=== PATIENT | male | born 1955 | race Caucasian/White ===

== ENCOUNTER → 2016-07-28 | Outpatient (CLI) | payer OTHER ==
[~2016-07-28] MED LIST: ALDACTONE100 MG PO; ALDACTONE25 M1 PO; AMBIEN10 M1 PO; AMBIEN5 MG PO; ATARAX,VISTARIL50 MG PO; BACTRIM DS 8001 TA1 PO; BACTROBAN OINT0.9 GM T; BACTROBAN2% TP; BENADRYL25 MG PO; CEPHULAC10 GM/15 M PO; Carafate1 GM/10 ML PO; DIABETA5 MG PO; FISH OIL 1,2001 EAC1 PO; FLEXERIL10 MG PO; HYDROCODONE BIT1 T52 PO; KEFLEX500 MG PO; LACTULOSE20 GM/30 M PO; LANTUS100 U/ML SC; LASIX20 MG PO; MEDROL DOSEPAK4 MG PO; METANX CAPSULE1 EACH PO; MOTRIN800 MG PO; MULTI-DAY VITA1 EACH PO; MULTIVITAMIN1 CTB PO; NAPROSYN500 MG PO; NORCO 325 MG-7.1 TAB PO; NOVOLOG100 U/ML SC; OMEPRAZOLE20 M2 PO; POTASSIUM20 MEQ PO; PRILOSEC20 MG PO; ROXICODONE15 MG PO; SPIRIVA18 MCG PO; SPRIVA; TRAZADONE HYDR100 MG PO; TRAZODONE100 MG PO; VENTOLIN H0.09 MG/AC INH; VICODIN ES 7501 TA1 PO; VISTARIL25 M1 PO; ZOLOFT50 MG PO; [UNRECOGNIZED DRUG - OTHER]
[2016-07-28 12:05] LABS: BUN 9 mg/dl (7-24); CARBON DIOXIDE 29 mmol/L (21-32); CHLORIDE 101 mmol/L (98-107); CHOLESTEROL 141 mg/dL (<200); EST GLOM FILT AFRICAN AMERICAN > 60 ml/min; GLUCOSE 174 mg/dL (65-99); HDL CHOLESTEROL 32 mg/dl (40-60); LDL CHOLESTEROL 76 mg/dL (9-159); POTASSIUM 3.7 mmol/L (3.5-5.1); SODIUM 136 mmol/L (136-145); TRIGLYCERIDES 167 mg/dl (<150); VLDL CHOLESTEROL 33 mg/dL (6-40)
== END | disposition home or self-care (01) ==
LOC: LAB 10:47
PROVIDERS: Family Medicine
DX: J44.9 Chronic obstructive pulmonary disease, unspecified (principal); E11.9 Type 2 diabetes mellitus without complications; I10 Essential (primary) hypertension; T30.0 Burn of unspecified body region, unspecified degree

== ENCOUNTER → 2016-12-15 | Outpatient (CLI) | payer OTHER ==
[2016-12-15 12:20] LABS: BASO % 0.7 % (0.0-1.0); EOS # 0.1 10*3/uL (0.0-0.4); EOS % 1.4 % (1.0-4.0); HEMATOCRIT 44.9 % (42.0-52.0); HEMOGLOBIN 14.5 g/dl (14.0-18.0); LYMPH # 1.2 10*3/uL (1.3-4.4); LYMPH % 27.8 % (27.0-41.0); MEAN CELL VOLUME 90.3 fl (80.0-94.0); MEAN CORPUSCULAR HGB 29.2 pg (27.0-31.0); MEAN CORPUSCULAR HGB CONC 32.3 g/dl (33.0-37.0); MONO # 0.4 10*3/uL (0.1-1.0); MONO % 9.9 % (3.0-9.0); NEUT # 2.6 10*3/uL (2.3-7.9); PLATELET COUNT AUTOMATED 108 10*3/uL (130-400); RED BLOOD COUNT 4.97 10*6/uL (4.50-5.90); WHITE BLOOD COUNT 4.4 10*3/uL (4.8-10.8)
[2016-12-15 12:39] LABS: ALBUMIN 1.9 gm/dl (3.1-4.5); ALKALINE PHOSPHATASE 111 U/L (45-117); BUN 7 mg/dl (7-24); CHLORIDE 103 mmol/L (98-107); CREATININE 1.21 mg/dL (0.70-1.30); SGOT/AST 67 IU/L (3-35); SGPT/ALT 43 U/L (12-78); SODIUM 135 mmol/L (136-145); TOTAL PROTEIN 5.8 gm/dL (6.4-8.2)
== END | disposition home or self-care (01) ==
LOC: LAB 11:33
PROVIDERS: Family Medicine
DX: T30.0 Burn of unspecified body region, unspecified degree (principal); R53.83 Other fatigue; E11.9 Type 2 diabetes mellitus without complications; M19.011 Primary osteoarthritis, right shoulder; X58.XXXA Exposure to other specified factors, initial encounter; Y93.89 Activity, other specified; Y92.89 Other specified places as the place of occurrence of the external cause; Y99.8 Other external cause status

== ENCOUNTER 2017-03-30 14:01 | Inpatient (IN) | payer OTHER ==
[~2017-03-30] VITALS: Ht 182.8 cm; Wt 94.1 kg
[2017-03-30] VITALS (8 sets, daily range): BP systolic 118–158; BP diastolic 70–98
[~2017-03-30 14:01] MED LIST changes: -CIPROFLOXACIN500 M4 PO; -METOPROLOL SUCC25 M2 PO; -METRONIDAZOLE500 M1 PO; -MOBIC15 MG PO; -ROPINIROLE HYDRO1 MG PO; -VITAMIN D5000 UNI1 PO
--- NOTE | 2017-03-30 15:14 | NUR ---
MULTIPLE ATTEMPTS MADE TO START AND IV WITH NO SUCCESS AT THIS TIME THE PATIENT REFUSES ANY FUTHER ATTEMPTS. MEL CALRSON RN [employer] SOAPING MACHINE OPERATOR MADE AWARE.
[2017-03-30 15:25] LABS: BASO % 0.4 % (0.0-1.0); EOS # 0.1 10*3/uL (0.0-0.4); HEMATOCRIT 47.4 % (42.0-52.0); LYMPH # 1.1 10*3/uL (1.3-4.4); LYMPH % 20.8 % (27.0-41.0); MEAN CELL VOLUME 92.2 fl (80.0-94.0); MEAN CORPUSCULAR HGB 31.1 pg (27.0-31.0); MEAN CORPUSCULAR HGB CONC 33.8 g/dl (33.0-37.0); MEAN PLATELET VOLUME 10.9 fl (9.6-12.3); MONO # 0.5 10*3/uL (0.1-1.0); MONO % 8.6 % (3.0-9.0); NEUT # 3.6 10*3/uL (2.3-7.9); PLATELET COUNT AUTOMATED 141 10*3/uL (130-400); RED BLOOD COUNT 5.14 10*6/uL (4.50-5.90); RED CELL DISTRI WIDTH 16.9 % (0-14.5); WHITE BLOOD COUNT 5.3 10*3/uL (4.8-10.8)
[2017-03-30 15:34] LABS: ACT PARTIAL THROMBO TIME 25.5 SECONDS (20.8-31.5); INTERNATIONAL NORM RATIO 1.2 (2.0-3.5)
[2017-03-30 15:45] LABS: ALKALINE PHOSPHATASE 118 U/L (45-117); BUN 9 mg/dl (7-24); CHLORIDE 103 mmol/L (98-107); LIPASE 63 U/L (73-393); POTASSIUM 4.1 mmol/L (3.5-5.1); SGOT/AST 47 IU/L (3-35); SGPT/ALT 29 U/L (12-78); SODIUM 135 mmol/L (136-145); TOTAL PROTEIN 5.7 gm/dL (6.4-8.2)
--- NOTE | 2017-03-30 17:19 | NUR ---
SPOKE WITH DR. CASTELLON REGARDING PATIENT CONSULT. THE DOCTOR WAS UPDATED ON THE PATIENT AND WAS TOLD THE PLAN OF CARE. DR. CASTELLON STATED HE WOULD BE IN TOMORROW TO SEE THE PATIENT.
[2017-03-30] MEDS ORDERED: ROPINIROLE HYDRO1 MG PO (17:23)
[2017-03-30] MEDS ORDERED: MOBIC15 MG PO (17:23)
--- NOTE | 2017-03-30 18:00 | NUR ---
A 61, admitted to , under the services of MASSIMO Mak DO with a diagnosis of ETOH ABUSE AND AFIB RVR. Chief complaint is RAPID HEART RATE. Patient arrived via OTHER from ER. Monitor applied. Initial assessment completed. Vital signs taken and recorded. MASSIMO MAK DO notified of admission to the unit. Orders received. See assessment for past medical history, medications and allergies. Patient and/or family oriented to unit. [facility] visitation policy reviewed. Clothing/patient valuable form completed. LESLIE ESPOSITO
[2017-03-30 18:20] LABS: BILIRUBIN NEGATIVE (NEGATIVE); BLOOD TRACE-INTACT (NEGATIVE); CLARITY CLEAR (CLEAR); COLOR YELLOW (YELLOW); GLUCOSE NEGATIVE (NEGATIVE); KETONE NEGATIVE (NEGATIVE); LEUKO ESTERASE NEGATIVE (NEGATIVE); NITRITE NEGATIVE (NEGATIVE); PH 5.5 (5.0-9.0); UROBILINOGEN 0.2 E.U./dl (0.2-1.0)
[2017-03-30 18:27] LABS: RBC 0-2 rbc/hpf (0-2)
[2017-03-30 18:29] LABS: URINE AMPHETAMINES < 1000 (1000ng/ml); URINE BARBITURATES < 200 (200ng/ml); URINE BENZODIAZEPINES > 200 (200ng/ml); URINE CANNABINOIDS (THC) > 50 (50ng/ml); URINE COCAINE < 300 (300ng/ml); URINE METHADONE < 300 (300ng/ml); URINE OPIATES > 300 (300ng/ml)
[2017-03-30 18:32] LABS: URINE PHENCYCLIDINE < 25 (25ng/ml)
--- NOTE | 2017-03-30 18:35 | NUR ---
PATIENT DRINKING REDICAT NOW. NO COMPLAINTS AT THIS TIME.
--- NOTE | 2017-03-30 20:43 | NUR ---
DR. AVILES NOTIFIED THAT LAB WAS UNABLE TO DRAW TROPONINS D/T PATIENT BEING A VERY HARD STICK AND THEY WERE UNSUCCESSFUL IN EARLIER ATTEMPTS.
--- NOTE | 2017-03-31 00:43 | NUR ---
DR SMITH NOTIFIED OF CT RESULTS. OK TO RESUME DIET NOW.
[2017-03-31 07:11] LABS: BASO % 0.6 % (0.0-1.0); EOS # 0.1 10*3/uL (0.0-0.4); EOS % 1.4 % (1.0-4.0); HEMATOCRIT 44.7 % (42.0-52.0); HEMOGLOBIN 15.3 g/dl (14.0-18.0); LYMPH # 0.8 10*3/uL (1.3-4.4); LYMPH % 20.9 % (27.0-41.0); MEAN CELL VOLUME 92.4 fl (80.0-94.0); MEAN CORPUSCULAR HGB 31.6 pg (27.0-31.0); MEAN CORPUSCULAR HGB CONC 34.2 g/dl (33.0-37.0); MEAN PLATELET VOLUME 11.7 fl (9.6-12.3); MONO # 0.5 10*3/uL (0.1-1.0); MONO % 13.1 % (3.0-9.0); NEUT # 2.3 10*3/uL (2.3-7.9); NEUT % 63.7 % (47.0-73.0); PLATELET COUNT AUTOMATED 125 10*3/uL (130-400); RED BLOOD COUNT 4.84 10*6/uL (4.50-5.90); RED CELL DISTRI WIDTH 16.8 % (0-14.5); WHITE BLOOD COUNT 3.6 10*3/uL (4.8-10.8)
[2017-03-31 07:42] LABS: ALBUMIN 1.7 gm/dl (3.1-4.5); ALKALINE PHOSPHATASE 97 U/L (45-117); BUN 8 mg/dl (7-24); CHLORIDE 107 mmol/L (98-107); CHOLESTEROL 131 mg/dL (<200); CREATININE 0.86 mg/dL (0.70-1.30); FREE T4 0.88 ng/dl (0.76-1.46); HDL CHOLESTEROL 30 mg/dl (40-60); LDL CHOLESTEROL 74 mg/dL (9-159); PHOSPHOROUS 2.9 mg/dL (2.5-4.9); POTASSIUM 4.6 mmol/L (3.5-5.1); SGOT/AST 48 IU/L (3-35); SGPT/ALT 25 U/L (12-78); SODIUM 135 mmol/L (136-145); TOTAL PROTEIN 5.1 gm/dL (6.4-8.2); TRIGLYCERIDES 137 mg/dl (<150); VLDL CHOLESTEROL 27 mg/dL (6-40)
[2017-03-31 07:57] LABS: VITAMIN D, 25-HYDROXY 9.5 ng/mL (30-100)
[2017-03-31 08:00] VITALS: BP 112/77
--- NOTE | 2017-03-31 08:03 | NUR ---
Area Field Person in to talk to patient. Patient states lives at HOME with A ROOM MATE. There are 17 steps in the home. Physician: DR CLEVELAND Pharmacy: Home health services: NONE Patient's level of ADLs: INDEPENDENT Patient has working utilities: YES DME: [facility] Follow-up physician's appointment after d/c: WILL BE MADE PRIOR TO DC Does patient want to access PORTAL?: Discharge plan HOME. RIGO TERESA
--- NOTE | 2017-03-31 08:22 | NUR ---
NOTIFIED DR LAWTON OF NEW CONSULT FOR DIARRHEA. REVIEWED LABS AND TEST RESULTS. DR LAWTON STATED "HE IS OK" CALL BACK WITH STOOL RESULTS WHEN WE ARE ABLE TO OBTAIN THEM.
--- NOTE | 2017-03-31 08:25 | NUR ---
PT OFF FLOOR VIA TRANSPORT FOR BLE US.
--- NOTE | 2017-03-31 10:56 | NUR ---
MULTIPLE ATTEMPTS TO DRAW LABS UNSUCCESSFUL.ENCOURAGED PT TO HAVE PICC PLACED BUT HE REFUSED.
[2017-03-31 12:00] VITALS: BP 153/94
--- NOTE | 2017-03-31 12:04 | NUR ---
ATIVAN 1 MG GIVEN FOR C/O ANXIETY. PT BEGINNING TO EXPERIENCE WITHDRAWAL FROM ALCOHOL.PT TACHY UP TO 140'S. PT ALSO STATES HE'S FEELING BAD AND "WANTS A DRINK. PT DOES DRINK WHISKEY DAILY IN LARGE QUANTITIES.
--- NOTE | 2017-03-31 14:10 | NUR ---
Attempted PT evaluation and pt declined stating that he needed to eat breakfast, made second attempt approximately 1 hour later and pt had just received breakfast. Will attempt at later time. [place]ia Orozco, PT
[2017-03-31 16:00] VITALS: BP 126/81
[2017-03-31 20:00] VITALS: BP 138/96
[2017-04-01] VITALS: BP 148/68
[2017-04-01 08:00] VITALS: BP 109/81
--- NOTE | 2017-04-01 11:11 | NUR ---
OT DAILY NOTE TRETAMENT ATTEMPTED THIS DATE. PT IN BED AND STATED THAT HE HAS BEEN UP EVERY 10 MINUTES TO USE THE BATHROOM AND JUST WANTS TO REST. WILL ATTEMPT AT ANOTHER DATE/TIME. EDUARDA MEDINA/Florecita
[2017-04-01 12:00] VITALS: BP 103/66
--- NOTE | 2017-04-01 14:03 | NUR ---
PHYSICAL THERAPY PT eval completed on level 5 today. full eval to follow, Patient lacks motivation to participate in eval today. Upon assessment he is found to hacve decreased strenght, balacne and endurance and safety and would benefit from PT services to improve functional mobility. patient is a moderate complexity [id number] per chart review, tests and evaluation. Recommend home with home PT on d/c. Thank you for this referral. Sammie Pan
[2017-04-01] MEDS ORDERED: VITAMIN D5000 UNI1 PO (16:33)
[2017-04-01] MEDS ORDERED: METRONIDAZOLE500 M1 PO (16:33)
[2017-04-01] MEDS ORDERED: CIPROFLOXACIN500 M4 PO (16:33)
[2017-04-01] MEDS ORDERED: METOPROLOL SUCC25 M2 PO (16:33)
--- NOTE | 2017-04-01 17:42 | NUR ---
Discharge instructions reviewed with patient/family. Patient receptive and verbalizes understanding. Follow-up care arranged. Written instructions given to patient/family.F/U EDUCATION PROVIDED WITH REFERRAL TO DR CASTELLON FOR F/U. MARCIA TANG
--- NOTE | 2017-04-04 14:29 | NUR ---
OCCUPATIONAL THERAPY CO-SIGN I approve of the Occupational Therapy notes written above. MACIE HERNANDEZ
== END 2017-04-01 17:08 | disposition home or self-care (01) | DRG 871 ==
LOC: ED 14:01 → EDHOLD 16:09 → 5E 16:09
PROVIDERS: Internal Medicine; Physician Assistant; ADMIT Emergency Medicine
DX: A41.9 Sepsis, unspecified organism (principal); E43 Unspecified severe protein-calorie malnutrition; D69.6 Thrombocytopenia, unspecified; E11.51 Type 2 diabetes mellitus with diabetic peripheral angiopathy without gangrene; E83.42 Hypomagnesemia; I27.20 Pulmonary hypertension, unspecified; E11.65 Type 2 diabetes mellitus with hyperglycemia; E87.1 Hypo-osmolality and hyponatremia; I48.92 Unspecified atrial flutter; F10.20 Alcohol dependence, uncomplicated; Y90.9 Presence of alcohol in blood, level not specified; I48.91 Unspecified atrial fibrillation; B18.2 Chronic viral hepatitis C; K21.9 Gastro-esophageal reflux disease without esophagitis; F32.9 Major depressive disorder, single episode, unspecified; D72.810 Lymphocytopenia; I10 Essential (primary) hypertension; F17.210 Nicotine dependence, cigarettes, uncomplicated; J44.9 Chronic obstructive pulmonary disease, unspecified; F41.9 Anxiety disorder, unspecified; G47.00 Insomnia, unspecified; K52.9 Noninfective gastroenteritis and colitis, unspecified; Z68.28 Body mass index [BMI] 28.0-28.9, adult; Z82.49 Family history of ischemic heart disease and other diseases of the circulatory system; Z83.3 Family history of diabetes mellitus; Z82.5 Family history of asthma and other chronic lower respiratory diseases; Z79.899 Other long term (current) drug therapy; Z90.49 Acquired absence of other specified parts of digestive tract

== ENCOUNTER → 2017-03-30 | Outpatient (CLI) | payer OTHER ==
[~2017-03-30] MED LIST changes: +CIPROFLOXACIN500 M4 PO; +METOPROLOL SUCC25 M2 PO; +METRONIDAZOLE500 M1 PO; +MOBIC15 MG PO; +ROPINIROLE HYDRO1 MG PO; +VITAMIN D5000 UNI1 PO
== END | disposition home or self-care (01) ==
LOC: LAB 12:46
DX: K52.9 Noninfective gastroenteritis and colitis, unspecified (principal)

== ENCOUNTER → 2017-03-31 | Outpatient (CLI) | payer OTHER ==
[~2017-03-31] MED LIST changes: +CIPROFLOXACIN500 M4 PO; +METOPROLOL SUCC25 M2 PO; +METRONIDAZOLE500 M1 PO; +MOBIC15 MG PO; +ROPINIROLE HYDRO1 MG PO; +VITAMIN D5000 UNI1 PO
== END | disposition home or self-care (01) ==
LOC: LAB 11:37
DX: K52.9 Noninfective gastroenteritis and colitis, unspecified (principal)

== ENCOUNTER 2017-05-07 00:02 | Inpatient (IN) | payer OTHER ==
[~2017-05-07] VITALS: Ht 182.8 cm; Wt 99.8 kg
[2017-05-07] VITALS (16 sets, daily range): BP systolic 80–136; BP diastolic 50–89
--- NOTE | ~2017-05-07 | PROC NOTE ---
[place], [place] PROCEDURE NOTE NAME: TERRI HOWELL UNIT #: [id number] ROOM: [facility] DOCTOR: MASSIMO ESTEVEZ DO BIRTHDATE: [birth year] DOS: 05/11/2017 PROCEDURE: Arterial line placement. PROCEDURE IN DETAIL: This is a 61-year-old male currently admitted to the hospitalist service. I was consulted to assist with placing an arterial line. The procedure was performed with resident physician, Dr. David Puentes. An arterial line was placed in the left radial artery with ultrasound guidance. Sterile technique was maintained. There were no complications during the procedure. MASSIMO ESTEVEZ DO CM:PROCNOTE:PROCEDURE NOTE [id number] 1949 MASSIMO ESTEVEZ DO
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
[~2017-05-07 00:02] MED LIST changes: -ROXICODONE15 MG PO
[2017-05-07 01:28] LABS: BASO % 0.3 % (0.0-1.0); EOS % 0.3 % (1.0-4.0); HEMATOCRIT 40.5 % (42.0-52.0); HEMOGLOBIN 13.9 g/dl (14.0-18.0); LYMPH # 0.9 10*3/uL (1.3-4.4); LYMPH % 14.3 % (27.0-41.0); MEAN CELL VOLUME 91.4 fl (80.0-94.0); MEAN CORPUSCULAR HGB 31.4 pg (27.0-31.0); MEAN CORPUSCULAR HGB CONC 34.3 g/dl (33.0-37.0); MEAN PLATELET VOLUME 11.1 fl (9.6-12.3); MONO # 0.6 10*3/uL (0.1-1.0); MONO % 9.5 % (3.0-9.0); NEUT # 4.7 10*3/uL (2.3-7.9); NEUT % 75.1 % (47.0-73.0); PLATELET COUNT AUTOMATED 140 10*3/uL (130-400); RED BLOOD COUNT 4.43 10*6/uL (4.50-5.90); RED CELL DISTRI WIDTH 16.9 % (0-14.5); WHITE BLOOD COUNT 6.3 10*3/uL (4.8-10.8)
[2017-05-07 01:35] LABS: BILIRUBIN 2+ (NEGATIVE); BLOOD 1+ (NEGATIVE); CLARITY SL CLOUDY (CLEAR); COLOR YELLOW (YELLOW); GLUCOSE NEGATIVE (NEGATIVE); KETONE TRACE (NEGATIVE); LEUKO ESTERASE NEGATIVE (NEGATIVE); NITRITE POSITIVE (NEGATIVE); SPECIFIC GRAVITY 1.025 (1.005-1.030); UROBILINOGEN 0.2 E.U./dl (0.2-1.0)
[2017-05-07 01:41] LABS: ACT PARTIAL THROMBO TIME 27.2 SECONDS (20.8-31.5); INTERNATIONAL NORM RATIO 1.3 (2.0-3.5)
[2017-05-07 01:44] LABS: BACTERIA 1+; HYALINE CAST 40-45
[2017-05-07 01:45] LABS: URINE AMPHETAMINES < 1000 (1000ng/ml); URINE BARBITURATES < 200 (200ng/ml); URINE BENZODIAZEPINES > 200 (200ng/ml); URINE CANNABINOIDS (THC) < 50 (50ng/ml); URINE COCAINE < 300 (300ng/ml); URINE METHADONE > 300 (300ng/ml); URINE OPIATES > 300 (300ng/ml); URINE PHENCYCLIDINE < 25 (25ng/ml)
[2017-05-07 01:54] LABS: ALBUMIN 1.8 gm/dl (3.1-4.5); ALKALINE PHOSPHATASE 121 U/L (45-117); BUN 53 mg/dl (7-24); CHLORIDE 99 mmol/L (98-107); CREATININE 4.68 mg/dL (0.70-1.30); LIPASE 85 U/L (73-393); POTASSIUM 5.8 mmol/L (3.5-5.1); SGOT/AST 80 IU/L (3-35); SGPT/ALT 44 U/L (12-78); SODIUM 130 mmol/L (136-145)
[2017-05-07 02:01] LABS: TROPONIN I 0.149 ng/ml (<0.045)
[2017-05-07 02:02] LABS: ETHYL ALCOHOL < 3.0 mg/dl (<3)
[2017-05-07] MEDS ORDERED: ROXICODONE15 MG PO (07:51)
[2017-05-07 11:30] LABS: BASO % 0.2 % (0.0-1.0); EOS # 0.1 10*3/uL (0.0-0.4); EOS % 0.8 % (1.0-4.0); HEMOGLOBIN 14.2 g/dl (14.0-18.0); LYMPH # 1.4 10*3/uL (1.3-4.4); LYMPH % 21.7 % (27.0-41.0); MEAN CELL VOLUME 90.5 fl (80.0-94.0); MEAN CORPUSCULAR HGB 31.3 pg (27.0-31.0); MEAN CORPUSCULAR HGB CONC 34.6 g/dl (33.0-37.0); MEAN PLATELET VOLUME 11.4 fl (9.6-12.3); MONO # 0.7 10*3/uL (0.1-1.0); MONO % 10.5 % (3.0-9.0); NEUT # 4.4 10*3/uL (2.3-7.9); NEUT % 66.3 % (47.0-73.0); PLATELET COUNT AUTOMATED 139 10*3/uL (130-400); RED BLOOD COUNT 4.53 10*6/uL (4.50-5.90); RED CELL DISTRI WIDTH 16.9 % (0-14.5); WHITE BLOOD COUNT 6.7 10*3/uL (4.8-10.8)
[2017-05-07] MEDS ORDERED: TOPROL XL25 MG PO (11:33)
[2017-05-07] MEDS ORDERED: Lopressor25 MG PO (11:34)
[2017-05-07] MEDS ORDERED: AMBIEN5 MG PO (11:37)
[2017-05-07 11:41] LABS: INTERNATIONAL NORM RATIO 1.4 (2.0-3.5)
[2017-05-07 11:43] LABS: ACT PARTIAL THROMBO TIME 27.6 SECONDS (20.8-31.5)
[2017-05-07 13:10] LABS: ALBUMIN 1.6 gm/dl (3.1-4.5); CREATININE 3.57 mg/dL (0.70-1.30); PHOSPHOROUS 4.8 mg/dL (2.5-4.9); POTASSIUM 4.9 mmol/L (3.5-5.1); TOTAL PROTEIN 4.3 gm/dL (6.4-8.2)
[2017-05-07 13:11] LABS: FREE T4 0.99 ng/dl (0.76-1.46)
[2017-05-07 13:16] LABS: CKMB 16.1 ng/ml (0.5-3.6); THYROID STIM HORMONE (HS) 4.92 uIU/ml (0.358-4.75); TROPONIN I 0.141 ng/ml (<0.045)
[2017-05-07 13:21] LABS: VITAMIN D, 25-HYDROXY 10.4 ng/mL (30-100)
[2017-05-08] VITALS: BP 104/66
[2017-05-08 04:00] VITALS: BP 91/59
[2017-05-08 05:56] LABS: ALBUMIN 1.4 gm/dl (3.1-4.5); CREATININE 2.44 mg/dL (0.70-1.30); PHOSPHOROUS 3.2 mg/dL (2.5-4.9); POTASSIUM 4.7 mmol/L (3.5-5.1); TOTAL PROTEIN 4.1 gm/dL (6.4-8.2)
[2017-05-08 06:07] LABS: BASO % 0.4 % (0.0-1.0); EOS # 0.2 10*3/uL (0.0-0.4); EOS % 3.3 % (1.0-4.0); HEMATOCRIT 36.4 % (42.0-52.0); HEMOGLOBIN 12.7 g/dl (14.0-18.0); LYMPH % 21.2 % (27.0-41.0); MEAN CELL VOLUME 90.8 fl (80.0-94.0); MEAN CORPUSCULAR HGB 31.7 pg (27.0-31.0); MEAN CORPUSCULAR HGB CONC 34.9 g/dl (33.0-37.0); MEAN PLATELET VOLUME 10.6 fl (9.6-12.3); MONO # 0.6 10*3/uL (0.1-1.0); MONO % 12.1 % (3.0-9.0); NEUT # 2.8 10*3/uL (2.3-7.9); NEUT % 62.8 % (47.0-73.0); RED BLOOD COUNT 4.01 10*6/uL (4.50-5.90); RED CELL DISTRI WIDTH 16.8 % (0-14.5); WHITE BLOOD COUNT 4.5 10*3/uL (4.8-10.8)
[2017-05-08 06:16] LABS: PLATELET COUNT AUTOMATED 91 10*3/uL (130-400)
[2017-05-08 07:47] VITALS: BP 83/65; BP 98/68
[2017-05-08 12:00] VITALS: BP 102/62
[2017-05-08 16:00] VITALS: BP 102/72
[2017-05-08 20:00] VITALS: BP 100/72
[2017-05-09] VITALS: BP 98/64
[2017-05-09 04:00] VITALS: BP 96/68
[2017-05-09 04:24] LABS: BASO % 0.4 % (0.0-1.0); EOS # 0.1 10*3/uL (0.0-0.4); EOS % 2.6 % (1.0-4.0); HEMOGLOBIN 13.2 g/dl (14.0-18.0); LYMPH # 1.5 10*3/uL (1.3-4.4); LYMPH % 27.2 % (27.0-41.0); MEAN CELL VOLUME 92.4 fl (80.0-94.0); MEAN CORPUSCULAR HGB 30.5 pg (27.0-31.0); MEAN PLATELET VOLUME 11.1 fl (9.6-12.3); MONO # 0.8 10*3/uL (0.1-1.0); MONO % 13.9 % (3.0-9.0); NEUT % 55.5 % (47.0-73.0); PLATELET COUNT AUTOMATED 99 10*3/uL (130-400); RED BLOOD COUNT 4.33 10*6/uL (4.50-5.90); RED CELL DISTRI WIDTH 16.9 % (0-14.5); WHITE BLOOD COUNT 5.5 10*3/uL (4.8-10.8)
[2017-05-09 04:52] LABS: ALBUMIN 1.5 gm/dl (3.1-4.5); CREATININE 1.73 mg/dL (0.70-1.30); PHOSPHOROUS 3.3 mg/dL (2.5-4.9); POTASSIUM 4.9 mmol/L (3.5-5.1); TOTAL PROTEIN 4.5 gm/dL (6.4-8.2)
[2017-05-09 08:00] VITALS: BP 99/63
[2017-05-09 12:00] VITALS: BP 92/66
[2017-05-09 16:00] VITALS: BP 91/65
[2017-05-10] VITALS: BP 91/59
[2017-05-10 06:03] LABS: ALBUMIN 1.6 gm/dl (3.1-4.5); CREATININE 1.71 mg/dL (0.70-1.30); PHOSPHOROUS 3.7 mg/dL (2.5-4.9); TOTAL PROTEIN 4.9 gm/dL (6.4-8.2)
[2017-05-10 07:00] LABS: BASO # 0.1 10*3/uL (0.0-0.1); BASO % 0.7 % (0.0-1.0); EOS # 0.1 10*3/uL (0.0-0.4); EOS % 1.8 % (1.0-4.0); HEMOGLOBIN 14.4 g/dl (14.0-18.0); LYMPH # 1.6 10*3/uL (1.3-4.4); LYMPH % 20.8 % (27.0-41.0); MEAN CELL VOLUME 93.3 fl (80.0-94.0); MEAN CORPUSCULAR HGB 31.2 pg (27.0-31.0); MEAN CORPUSCULAR HGB CONC 33.5 g/dl (33.0-37.0); MEAN PLATELET VOLUME 11.7 fl (9.6-12.3); MONO # 0.7 10*3/uL (0.1-1.0); MONO % 8.8 % (3.0-9.0); NEUT # 5.1 10*3/uL (2.3-7.9); NEUT % 67.2 % (47.0-73.0); PLATELET COUNT AUTOMATED 132 10*3/uL (130-400); RED BLOOD COUNT 4.61 10*6/uL (4.50-5.90); RED CELL DISTRI WIDTH 17.1 % (0-14.5); WHITE BLOOD COUNT 7.6 10*3/uL (4.8-10.8)
[2017-05-10 08:00] VITALS: BP 93/59
[2017-05-10 12:00] VITALS: BP 79/56
[2017-05-10 16:00] VITALS: BP 89/43
[2017-05-10 20:27] VITALS: BP 104/70
[2017-05-11] VITALS (49 sets, daily range): BP systolic 72–107; BP diastolic 34–81
[2017-05-11 06:57] LABS: ALBUMIN 1.7 gm/dl (3.1-4.5); CREATININE 2.03 mg/dL (0.70-1.30); POTASSIUM 5.6 mmol/L (3.5-5.1)
[2017-05-11 12:10] LABS: BASO % 0.1 % (0.0-1.0); HEMATOCRIT 39.9 % (42.0-52.0); HEMOGLOBIN 13.5 g/dl (14.0-18.0); LYMPH # 1.1 10*3/uL (1.3-4.4); LYMPH % 12.6 % (27.0-41.0); MEAN CELL VOLUME 93.7 fl (80.0-94.0); MEAN CORPUSCULAR HGB 31.7 pg (27.0-31.0); MEAN CORPUSCULAR HGB CONC 33.8 g/dl (33.0-37.0); MONO # 0.5 10*3/uL (0.1-1.0); MONO % 6.3 % (3.0-9.0); NEUT # 6.8 10*3/uL (2.3-7.9); NEUT % 80.4 % (47.0-73.0); PLATELET COUNT AUTOMATED 136 10*3/uL (130-400); RED BLOOD COUNT 4.26 10*6/uL (4.50-5.90); RED CELL DISTRI WIDTH 17.2 % (0-14.5); WHITE BLOOD COUNT 8.4 10*3/uL (4.8-10.8)
[2017-05-11 12:25] LABS: ABG HCO3 15.7 mmol/l (22-26); ABG O2 SATURATION 56.3 % (95-97); ARTERIAL BLOOD GAS PCO2 36.6 mmHg (35-45); ARTERIAL BLOOD GAS PH 7.249 (7.35-7.45)
[2017-05-11 12:28] LABS: ALBUMIN 1.5 gm/dl (3.1-4.5); CREATININE 2.22 mg/dL (0.70-1.30); PHOSPHOROUS 5.2 mg/dL (2.5-4.9); POTASSIUM 5.6 mmol/L (3.5-5.1); TOTAL PROTEIN 4.6 gm/dL (6.4-8.2); TROPONIN I 0.042 ng/ml (<0.045)
[2017-05-11 12:30] LABS: ABG BASE EXCESS -10.8 mmol/L (-2.0-2.0)
[2017-05-11 12:34] LABS: ARTERIAL BLOOD GAS PO2 35.2 mmHg (80-90)
[2017-05-11 14:40] LABS: ABG BASE EXCESS -10.9 mmol/L (-2.0-2.0); ABG HCO3 13.9 mmol/l (22-26); ARTERIAL BLOOD GAS PCO2 27.2 mmHg (35-45); ARTERIAL BLOOD GAS PH 7.321 (7.35-7.45); ARTERIAL BLOOD GAS PO2 65.1 mmHg (80-90)
[2017-05-11 16:36] LABS: BASO % 0.1 % (0.0-1.0); EOS % 0.1 % (1.0-4.0); HEMOGLOBIN 13.5 g/dl (14.0-18.0); LYMPH # 1.3 10*3/uL (1.3-4.4); LYMPH % 14.1 % (27.0-41.0); MEAN CORPUSCULAR HGB CONC 32.9 g/dl (33.0-37.0); MEAN PLATELET VOLUME 11.3 fl (9.6-12.3); MONO # 0.7 10*3/uL (0.1-1.0); MONO % 7.3 % (3.0-9.0); NEUT # 7.4 10*3/uL (2.3-7.9); NEUT % 77.8 % (47.0-73.0); NUCLEATED RED BLOOD CELL 0.2 % (0.0-0.0); PLATELET COUNT AUTOMATED 162 10*3/uL (130-400); RED BLOOD COUNT 4.36 10*6/uL (4.50-5.90); RED CELL DISTRI WIDTH 17.3 % (0-14.5); WHITE BLOOD COUNT 9.5 10*3/uL (4.8-10.8)
[2017-05-11 17:04] LABS: FIBRINOGEN 249 mg/dl (178-460); INTERNATIONAL NORM RATIO 1.4 (2.0-3.5)
[2017-05-11 17:08] LABS: FIBRIN DEGRADATION PRODUCTS >OR=20 ug/ml (< 5)
[2017-05-11 17:48] LABS: BASO % 0.2 % (0.0-1.0); HEMATOCRIT 40.8 % (42.0-52.0); HEMOGLOBIN 13.6 g/dl (14.0-18.0); LYMPH # 1.5 10*3/uL (1.3-4.4); MEAN CELL VOLUME 93.8 fl (80.0-94.0); MEAN CORPUSCULAR HGB 31.3 pg (27.0-31.0); MEAN CORPUSCULAR HGB CONC 33.3 g/dl (33.0-37.0); MEAN PLATELET VOLUME 11.3 fl (9.6-12.3); MONO # 0.8 10*3/uL (0.1-1.0); NEUT # 7.4 10*3/uL (2.3-7.9); NEUT % 76.3 % (47.0-73.0); PLATELET COUNT AUTOMATED 170 10*3/uL (130-400); RED BLOOD COUNT 4.35 10*6/uL (4.50-5.90); RED CELL DISTRI WIDTH 17.4 % (0-14.5); WHITE BLOOD COUNT 9.7 10*3/uL (4.8-10.8)
[2017-05-11 18:11] LABS: ALBUMIN 2.1 gm/dl (3.1-4.5); CREATININE 2.32 mg/dL (0.70-1.30); PHOSPHOROUS 5.3 mg/dL (2.5-4.9); POTASSIUM 5.5 mmol/L (3.5-5.1); TOTAL PROTEIN 4.9 gm/dL (6.4-8.2)
[2017-05-12] VITALS (15 sets, daily range): BP systolic 65–108; BP diastolic 45–71
[2017-05-12 00:11] LABS: ABG HCO3 11.6 mmol/l (22-26); ABG O2 SATURATION 90.6 % (95-97); ARTERIAL BLOOD GAS PCO2 25.5 mmHg (35-45); ARTERIAL BLOOD GAS PH 7.277 (7.35-7.45); ARTERIAL BLOOD GAS PO2 70.1 mmHg (80-90)
[2017-05-12 00:12] LABS: ABG BASE EXCESS -13.7 mmol/L (-2.0-2.0)
[2017-05-12 06:13] LABS: HIV 1+2 AB + HIV1 P24 AG Non Reactive (Non Reactive)
== END 2017-05-12 03:34 | disposition short-term general hospital (02) | DRG 871 ==
LOC: ED 00:02 → EDHOLD 02:51 → ICCU 02:51 → 4E 02:51 → ICCU 09:01 → 4E 05-09 09:22 → ICCU 05-11 11:49
PROVIDERS: Emergency Medicine Emergency Medical Services; Family Medicine; Hospitalist; Internal Medicine; Internal Medicine Infectious Disease; Internal Medicine Nephrology; Student in an Organized Health Care Education/Training Program
PROC: 02HV33Z Insertion of Infusion Device into Superior Vena Cava, Percutaneous Approach (ICD-10-PCS; principal; 2017-05-07)
PROC: B548ZZA Ultrasonography of Superior Vena Cava, Guidance (ICD-10-PCS; 2017-05-07)
PROC: 03HC33Z Insertion of Infusion Device into Left Radial Artery, Percutaneous Approach (ICD-10-PCS; 2017-05-11)
DX: A41.9 Sepsis, unspecified organism (principal); N17.0 Acute kidney failure with tubular necrosis; I63.9 Cerebral infarction, unspecified; R65.21 Severe sepsis with septic shock; E43 Unspecified severe protein-calorie malnutrition; I95.9 Hypotension, unspecified; J18.1 Lobar pneumonia, unspecified organism; E87.1 Hypo-osmolality and hyponatremia; E11.51 Type 2 diabetes mellitus with diabetic peripheral angiopathy without gangrene; I11.0 Hypertensive heart disease with heart failure; I50.22 Chronic systolic (congestive) heart failure; N39.0 Urinary tract infection, site not specified; J44.0 Chronic obstructive pulmonary disease with (acute) lower respiratory infection; I27.20 Pulmonary hypertension, unspecified; E87.5 Hyperkalemia; E86.0 Dehydration; F10.10 Alcohol abuse, uncomplicated; F32.9 Major depressive disorder, single episode, unspecified; F41.9 Anxiety disorder, unspecified; G47.00 Insomnia, unspecified; E55.9 Vitamin D deficiency, unspecified; D64.9 Anemia, unspecified; E11.65 Type 2 diabetes mellitus with hyperglycemia; B18.2 Chronic viral hepatitis C; R31.29 Other microscopic hematuria; R82.2 Biliuria; M43.17 Spondylolisthesis, lumbosacral region; I48.0 Paroxysmal atrial fibrillation; G89.21 Chronic pain due to trauma; K21.9 Gastro-esophageal reflux disease without esophagitis; E66.3 Overweight; W18.39XA Other fall on same level, initial encounter; Y93.89 Activity, other specified; Y92.098 Other place in other non-institutional residence as the place of occurrence of the external cause; Y99.8 Other external cause status; Z71.6 Tobacco abuse counseling; Z72.0 Tobacco use; Z68.29 Body mass index [BMI] 29.0-29.9, adult; Z79.2 Long term (current) use of antibiotics; Z79.899 Other long term (current) drug therapy; Z82.49 Family history of ischemic heart disease and other diseases of the circulatory system; Z84.89 Family history of other specified conditions; Z83.6 Family history of other diseases of the respiratory system; Z83.3 Family history of diabetes mellitus